=== PATIENT | female | born 1965 | race African-American/Black ===

== ENCOUNTER 2018-04-20 10:14 | Emergency (ER) | payer OTHER ==
[~2018-04-20] VITALS: Ht 170.2 cm; Wt 65.8 kg
[2018-04-20] MEDS ORDERED: ACETAMINOPHEN ES 500 MG TABLET PO ONE (10:30)
[2018-04-20] MEDS ORDERED: ACETAMINOPHEN ES 500 MG TABLET ONE (10:33)
--- NOTE | 2018-04-20 11:23 | NUR ---
Patient discharged to home in stable conditon. Written and verbal after care instructions given. Patient verbalizes understanding of instructions.PT WALKS IN STEADY GAIT. PT SAYS FEESL BETTER.
== END 2018-04-20 11:20 | disposition home or self-care (01) ==
LOC: ER 10:14
DX: M54.6 Pain in thoracic spine (principal); F17.210 Nicotine dependence, cigarettes, uncomplicated; Z88.1 Allergy status to other antibiotic agents; Z88.6 Allergy status to analgesic agent
CPT/HCPCS: 71046; A4663; A9150

== ENCOUNTER 2018-07-19 00:57 | Emergency (ER) | payer OTHER ==
[~2018-07-19] VITALS: Ht 170.2 cm; Wt 65.8 kg
--- NOTE | 2018-07-19 01:13 | NUR ---
Patient ambulated with stable gait. Speech is clear, speaks in complete sentences. No neuro deficits. Patient came for c/o left sided dental "abscess" x2 weeks came today for worsening pain. Respiratory even and unlabored. No GI/ distress. Patient unable to sit still, pacing back and forth in the room.
--- NOTE | 2018-07-19 01:17 | NUR ---
ERMD at bedside for MSE
[2018-07-19] MEDS ORDERED: LIDOCAINE HCL 2% 20 ML VIAL IJ ONE (01:30)
[2018-07-19] MEDS ORDERED: BUPIVACAINE 0.25% 30 ML VIAL TP ONE (01:30)
[2018-07-19] MEDS ORDERED: HYDROMORPHONE 1 MG/1 ML DISP.SYRIN ONE (01:38)
[2018-07-19] MEDS ORDERED: HYDROMORPHONE 1 MG/1 ML DISP.SYRIN IM ONE (01:45)
--- NOTE | 2018-07-19 02:01 | NUR ---
Patient discharged to home in stable conditon. Written and verbal after care instructions given. Patient verbalizes understanding of instructions. Patient ambulated with stable gait.
[2018-07-19 02:02] VITALS: BP 143/63
== END 2018-07-19 02:03 | disposition home or self-care (01) ==
LOC: ER 00:58
DX: K08.89 Other specified disorders of teeth and supporting structures (principal); F17.200 Nicotine dependence, unspecified, uncomplicated; Z88.1 Allergy status to other antibiotic agents; Z88.6 Allergy status to analgesic agent
CPT/HCPCS: 64400; 96372; 99284; J1170; J3490; A4663